=== PATIENT | female | born 1965 | race African-American/Black ===

== ENCOUNTER 2024-03-04 11:09 | Emergency (ER) | payer OTHER ==
[2024-03-04 11:16] VITALS: BP 117/76; PULSE 80; RESP 18; TEMP 98.1; BMI 36.6
[2024-03-04] MEDS ORDERED: KETOROLAC TROMETHAMINE 30 MG/1 ML VIAL ONE (12:35)
[2024-03-04] MEDS ORDERED: diazePAM 5 MG TABLET ONE (12:35)
[2024-03-04] MEDS: KETOROLAC TROMETHAMINE 30 MG/1 ML VIAL IM ONE (12:42)
[2024-03-04] MEDS: diazePAM 5 MG TABLET PO ONE (12:42)
== END 2024-03-04 14:44 | disposition home or self-care (01) ==
LOC: JERFT 11:09
PROC: 3E0233Z Introduction of Anti-inflammatory into Muscle, Percutaneous Approach (ICD-10-PCS; principal; 2024-03-04)
DX: M79.602 Pain in left arm (principal); G89.29 Other chronic pain; R20.0 Anesthesia of skin; R20.2 Paresthesia of skin
CPT/HCPCS: 72125-TC; 72128-TC; 99284-25